=== PATIENT | male | born 1970 | race African-American/Black ===

== ENCOUNTER → 2021-06-08 | Outpatient (CLI) | payer BC, OTHER ==
[~2021-06-08] MED LIST: HYDR-34 PO; HYDR1TAB PO
--- NOTE | 2021-06-08 09:58 | Diagnostic Imaging Report ---
PROCEDURE: US Gallbladder. TECHNIQUE: Multiple real-time grayscale images were obtained over the right upper quadrant in various projections. INDICATION: Epigastric pain. COMPARISON: None available. FINDINGS: The liver is normal in size (16 cm in length) and echogenicity. There is no focal hepatic mass. The main portal vein is patent with antegrade flow. The gallbladder is distended without gallstones, wall thickening, or pericholecystic fluid. The common bile duct measures up to 0.3 cm in diameter. No intrahepatic biliary dilation. Pancreas is completely obscured by overlying bowel gas. The right kidney is normal in size. No hydronephrosis, shadowing calculi, or suspicious mass lesion. IMPRESSION: Normal right upper quadrant ultrasound. Dictated by: Dictated on workstation # [id number]
== END ==
LOC: RAD 08:00
PROVIDERS: ATTEND Surgery
DX: R10.13 Epigastric pain (principal)
CPT/HCPCS: 76705

== ENCOUNTER → 2021-06-15 | Outpatient (CLI) | payer BC, OTHER ==
[~2021-06-15] MED LIST changes: +CATHETER FLUSH 10 ML SYR IVP PRN
--- NOTE | 2021-06-15 12:10 | Diagnostic Imaging Report ---
RADIOPHARMACEUTICAL: 5.47 mCi Tc-99m Choletec IV. INDICATION: Epigastric pain. COMPARISON: 01/25/2009 and ultrasound dated 06/08/2021. TECHNIQUE: Anterior dynamic imaging for 45 minutes. An additional 60 minutes of imaging was performed after the patient ingested an 8 ounce can of Ensure Plus. FINDINGS: There is homogenous uptake throughout the liver. The gallbladder is visualized at 15 minutes and small bowel at 20 minutes. After ingesting an 8 ounce can of Ensure Plus, there is borderline low contraction of the gallbladder with mildly low calculated GBEF at 31%. IMPRESSION: 1. No evidence of acute cholecystitis or common duct obstruction. 2. The gallbladder ejection fraction is calculated to be 31%, which is minimally abnormally low. Therefore, this could relate to underlying biliary dyskinesia or chronic acalculous cholecystitis. Some medications can also result in decreased gallbladder ejection fraction. Dictated by: Dictated on workstation # [id number]
== END ==
LOC: CARD 09:33
PROVIDERS: ATTEND Surgery
DX: R10.13 Epigastric pain (principal)
CPT/HCPCS: 78227; A9537

== ENCOUNTER → 2021-06-21 | Outpatient (CLI) | payer OTHER ==
[~2021-06-21] MED LIST changes: +ACHD5005 PO; -CATHETER FLUSH 10 ML SYR IVP PRN; +DOCU-143 PO
== END | disposition home or self-care (01) ==
LOC: PREOP 13:59
PROVIDERS: ATTEND Surgery
DX: Z01.818 Encounter for other preprocedural examination (principal)

== ENCOUNTER 2021-06-22 07:50 | Day surgery (SDC) | payer OTHER ==
[2021-06-22] VITALS (11 sets, daily range): BP systolic 140–173; BP diastolic 86–107
[~2021-06-22] VITALS: Ht 190.5 cm; Wt 109.7 kg
[~2021-06-22 07:50] MED LIST changes: -ACHD5005 PO; -DOCU-143 PO
[2021-06-22] MEDS ORDERED: ceFAZolin 2 GM IV Premixed 50 ML IV ONE (08:15)
[2021-06-22] MEDS ORDERED: LIDOCAINE/EPI 2% 1:100,00 (XYLOCAINE) 20 ML VIAL ONE (08:26)
[2021-06-22] MEDS: LACTATED RINGERS 1,000 ML IV PRN ×2 (08:40→10:09)
--- NOTE | 2021-06-22 08:42 | Progress Note-Pre Operative ---
Pre-Operative Progress Note H&P Reviewed The H&P was reviewed, patient examined and no changes noted. Date Seen by Provider: June 22, 2021 Time Seen by Provider: 08:42 Date H&P Reviewed: June 22, 2021 Time H&P Reviewed: 08:42 Pre-Operative Diagnosis: biliary dyskinesia LEXI KNIGHT DO June 22, 2021 08:42
[2021-06-22] MEDS ORDERED: ROCURONIUM 50 MG/5 ML (ZEMURON) VIAL IV ONE (08:52)
[2021-06-22] MEDS ORDERED: LIDOCAINE PF 2% 5 ML (XYLOCAINE) VIAL ONE (08:52)
[2021-06-22] MEDS ORDERED: fentaNYL INJ 100 MCG/2 ML AMP ONE (08:52)
[2021-06-22] MEDS ORDERED: ONDANSETRON 4 MG/2 ML (SDV) Z0FRAN ONE (08:52)
[2021-06-22] MEDS ORDERED: MIDAZOLAM 2 MG/2 ML (VERSED) VIAL ONE (08:52)
[2021-06-22] MEDS ORDERED: proPOfol 200 MG/20 ML (DIPRIVAN) VIAL IV ONE (08:52)
[2021-06-22] MEDS ORDERED: PHENYLEPHRINE 100 MCG/ML 10 ML (ANESTHESIA) SYR ONE (09:52)
[2021-06-22] MEDS ORDERED: NEOSTIGMINE 3 MG/3 ML VIAL ONE (10:21)
[2021-06-22] MEDS ORDERED: GLYCOPYRROLATE 0.2 MG/ML (ROBINUL) 2 ML VIAL ONE (10:21)
[2021-06-22] MEDS ORDERED: SEVOFLURANE (ULTANE) 15 ML INHAL SOLN ONE (10:24)
--- NOTE | 2021-06-22 10:37 | Discharge Inst-Simple/Standard ---
Discharge Inst-Standard Discharge Medications New, Converted or Re-Newed RX: Transmitted to Pharmacy Patient Instructions/Follow Up Plan of Care/Instructions/FU: 2 weeks Sherrie Activity as Tolerated: No Discharge Diet: Regular Diet Other Inst to Patient Follow up Appt: Make appointment for 2 weeks. Instructions: No lifting greater than 10 pounds. No strenuous activity. May shower in 24 hours, no tub bath or soaking. Use incentive spirometer at home as directed. No Smoking Skin/Wound Care: You have special glue over incision, it will fall off on it's own. Symptoms to Report: Appetite Changes, Extremity Discoloration, Numbness/Tingling, Swelling Increased, Bleeding Excessive, Eyesight Changes, Pain Increased, Urine Color Change, Constipation(Persistent), Fever over 101 degree F, Pain/Pressure in chest, Urinating Difficulty, Cough Up/Vomit Blood, Heart Beat Irreg/Pounding, Pain/Pressure in jaw, Vaginal Bleeding Increase, Cramps in feet or legs, Lightheadedness, Pain/Pressure in shoulder, Diarrhea(Persistent), Memory Changes Suddenly, Questions/Concerns, Weight gain consecutive days, Dizziness/Fainting, Nausea/Vomiting, Shortness of Breath, Weight gain over 2 pounds. If eyes or skin turn yellow notify physician. If questions or concerns contact your physician Or seek help at emergency department. LEXI KNIGHT DO June 22, 2021 10:36
[2021-06-22] MEDS ORDERED: ACHD5005 PO ×2 (10:38→12:22)
[2021-06-22] MEDS ORDERED: DOCU-143 PO ×2 (10:38→12:22)
--- NOTE | 2021-06-22 10:41 | Progress Note-Post Operative ---
Post-Operative Progess Note Surgeon (s)/Casing Finisher And Stuffer (s) Surgeon LEXI KNIGHT DO Casing Finisher And Stuffer: Dr. Phelps to assist in retraction dissection and closure Pre-Operative Diagnosis biliary dyskinesia Post-Operative Diagnosis same Procedure & Operative Findings Date of Procedure 06/22/21 Procedure Performed/Findings PROCEDURE: Laparoscopic cholecystectomy with intraoperative cholangiogram. COMPLICATIONS: None. PROCEDURE: The patient was taken to the operating suite and was prepped and draped in sterile fashion. A surgical pause was performed. Just superior to the umbilicus, a 12 mm incision was made. Dissection was taken down to the fascia, which was then scored and grasped with a Cornelius and the abdomen was then entered. A 0 Vicryl suture was placed in a zsnsez-be-mtkal fashion and a Hays trocar was placed and secured. Pneumoperitoneum was achieved. A 5mm trochar place in the subxyphoid and 2 in the right upper quadrant. The gallbladder was then grasped and elevated. Lots of adhesions to the liver and gallbladder. These were taken down with cautery and blunt dissection. The cystic duct, and cystic artery were then dissected out. Clip was placed on the distal portion of the cystic duct which was then partially transected. An arrow catheter was inserted into the duct. The cholangiogram was then performed. No filing defects and contrast made its way into the duodenum. Catheter removed. Clips were placed on proximal portion of the cystic duct and then the duct was then transected. Clips were placed along the proximal and distal portion of the cystic artery which was then transected. Hook cautery was used to dissect the gallbladder from the gallbladder fossa achieving hemostasis. The gallbladder was placed in an Endobag and removed through the 12 mm trocar site. The abdomen was then reinspected. Copious amounts of irrigation were used to irrigate the abdomen and there were no signs of active bleeding. Hemostasis had been achieved. The 12 mm fascial defect was then closed with 0 Vicryl suture that had been placed in a rkjufk-qv-rmufo fashion. The abdomen was then desufflated, the trocars were removed. The abdomen was then washed and dried. The skin was then closed using 4-0 Monocryl in a subcuticular fashion. The abdomen was washed and dried and Skin Affix was place over incisions. Patient tolerated the procedure well without any complications and was taken to the recovery room in stable condition. Anesthesia Type general Estimated Blood Loss Estimated blood loss (mL): minimal Specimens/Packing Specimens Removed gallbladder LEXI KNIGHT DO June 22, 2021 10:41
[2021-06-22] MEDS ORDERED: MEPERIDINE (DEMEROL) INJ 50 MG/ML IVP ONE (10:45)
[2021-06-22] MEDS ORDERED: fentaNYL INJ 100 MCG/2 ML AMP IVP ONE (10:45)
[2021-06-22] MEDS ORDERED: HYDROmorphone 2 MG/ML VIAL (DILAUDID) IV ONE (10:45)
[2021-06-22] MEDS ORDERED: ONDANSETRON 4 MG/2 ML (SDV) Z0FRAN IVP PRN (10:45)
[2021-06-22] MEDS ORDERED: PROMETHAZINE INJ 25 MG/ML (PHENERGAN) AMP IVP ONE (10:45)
--- NOTE | 2021-06-22 11:01 | Anesthesia-General Post-Op ---
General Patient Condition Mental Status/LOC: Same as Preop Cardiovascular: Satisfactory Nausea/Vomiting: Absent Respiratory: Satisfactory Pain: Controlled Complications: Absent Post Op Complications Complications None Follow Up Care/Instructions Patient Instructions None needed. Anesthesia/Patient Condition Patient Condition Patient is doing well, no complaints, stable vital signs, no apparent adverse anesthesia problems. No complications reported per nursing. HUMPHREY HSIEH CRNA June 22, 2021 11:01
--- NOTE | 2021-06-22 11:04 | Diagnostic Imaging Report ---
INDICATION: Fluoroscopy for intraoperative cholangiogram. Fluoroscopy was performed during intraoperative cholangiogram in the OR. 9 seconds of fluoroscopic time utilized. 42 images were obtained demonstrating contrast being injected via the cystic duct remnant. Intrahepatic and extrahepatic bile ducts are normal caliber. No filling defects are seen. There is flow of contrast into the duodenum. IMPRESSION: Fluoroscopy for intraoperative cholangiogram. Dictated by: Dictated on workstation # [id number]
[2021-06-22] MEDS ORDERED: HYDROcodone/APAP 5 MG/325 MG (LORTAB) TAB PO ONE (12:15)
== END 2021-06-22 12:35 | disposition home or self-care (01) ==
LOC: SDC 07:50
PROVIDERS: ATTEND Surgery
DX: K82.8 Other specified diseases of gallbladder (principal); K81.1 Chronic cholecystitis; K64.0 First degree hemorrhoids; K31.9 Disease of stomach and duodenum, unspecified
CPT/HCPCS: 76000; 87081; 94664

== ENCOUNTER 2022-06-16 18:45 | Emergency (ER) | payer OTHER ==
[~2022-06-16] VITALS: Ht 190.5 cm; Wt 108.9 kg
[~2022-06-16 18:45] MED LIST changes: +ACHD5005 PO; +DOCU-143 PO
--- NOTE | 2022-06-16 18:51 | ED General ---
General Stated Complaint: POSSIBLE SEIZURE Source of Information: EMS History of Present Illness Date Seen by Provider: Jun 16, 2022 Time Seen by Provider: 18:50 Initial Comments Patient is a 52-year-old male who presents to the emergency department today by EMS chief complaint syncope. He was visiting his parents, had several drinks this evening also smoked marijuana for the first time. He went into the bathroom to go urinate and started to feel lightheaded. He was leaning over the sink feeling a little nauseous and then went down. He did hit his head on the floor, he states he heard the "thud". Unsure really of loss of consciousness. He was found sitting in the bathroom against the wall. He was unable to get up on his own. Has never smoked marijuana before. Denies any recent illnesses. Does not take any daily medications. No chest pain, shortness of breath. He did have a headache initially but that is improved. He denies new numbness tingling weakness in his extremities. He does have a history of what looks like ulnar nerve repair on the left. He has chronic tingling/numbness in his left upper and lower extremity. On arrival in a cervical collar. Awake, alert oriented and in no acute distress. EMS did report initial blood pressure once he was in the ambulance in the upper 80s systolic. Currently 117 systolic. Timing/Duration: 1 Hour Severity: Moderate Associated Systoms: Other (No current symptoms) Allergies and Home Medications Allergies Coded Allergies: No Known Drug Allergies (Unverified , 06/22/21) Patient Home Medication List Home Medication List Reviewed: Yes Docusate Sodium (Colace) 100 Mg Capsule, 100 MG PO BID Prescribed by: LEXI KNIGHT on 06/22/21 1222 Hydrocodone/Acetaminophen (Hydrocodone-Acetamin 5-325 mg) 5 Mg-325 Mg Tablet, 1 EACH PO Q4H PRN for PAIN-MODERATE (5-7) Prescribed by: LEXI KNIGHT on 06/22/21 1222 Review of Systems Review of Systems Constitutional: see HPI, malaise, other (syncope) EENTM: no symptoms reported Respiratory: no symptoms reported Cardiovascular: no symptoms reported Gastrointestinal: no symptoms reported Genitourinary: no symptoms reported Musculoskeletal: neck pain (initially) Skin: other (rash dorsum of left wrist ) Psychiatric/Neurological: Paresthesia (LUE, LLE), Other (syncope) All Other Systems Reviewed Negative Unless Noted: Yes Past Teyqtqc-Hycsrl-Xwpkwb Hx Seasonal Allergies Seasonal Allergies: No Past Medical History Respiratory: No Currently Using CPAP: No Currently Using BIPAP: No Cardiac: No Neurological: No Reproductive Disorders: No Sexually Transmitted Disease: No Gastrointestinal: No Musculoskeletal: No Endocrine: No Blood Disorders: No Physical Exam Vital Signs Vital Signs - First Documented 06/16/22 18:47 Temp 36.4 Pulse 77 Resp 14 B/P (MAP) 119/70 (86) Pulse Ox 96 Capillary Refill : Height, Weight, BMI Height: '" Weight: lbs. oz. kg; 30.22 BMI Method: General Appearance: No Apparent Distress, WD/WN Eyes: Bilateral Eye Normal Inspection, Bilateral Eye PERRL, Bilateral Eye EOMI HEENT: TMs Normal, Moist Mucous Membranes Neck: Non Tender, Other (cervical collar in place) Respiratory: Lungs Clear, Normal Breath Sounds, No Accessory Muscle Use, No Respiratory Distress Cardiovascular: Regular Rate, Rhythm, Normal Peripheral Pulses Gastrointestinal: Non Tender, Soft Extremity: Normal Capillary Refill, Normal Inspection, Normal Range of Motion, Non Tender, No Calf Tenderness Neurologic/Psychiatric: Alert, Oriented x3, No Motor/Sensory Deficits (5/5 motor U/L ext bilat; subjective decreased sensation LUE and LLE), Normal Mood/Affect, web methods developer II-XII Norm as Tested Skin: Normal Color, Warm/Dry, Other (numular dermatitis dorsal left wrist (pt reports reaction to watch)) Progress/Results/Core Measures Suspected Sepsis SIRS Temperature: Pulse: Respiratory Rate: Blood Pressure / Mean: Laboratory Tests 06/16/22 18:53: Creatinine 1.24 Results/Orders Lab Results Laboratory Tests Test 06/16/22 18:53 Range/Units Sodium Level 140 135-145 MMOL/L Potassium Level 3.5 L 3.6-5.0 MMOL/L Chloride Level 108 H 98-107 MMOL/L Carbon Dioxide Level 17 L 21-32 MMOL/L Anion Gap 15 H 5-14 MMOL/L Blood Urea Nitrogen 10 7-18 MG/DL Creatinine 1.24 0.60-1.30 MG/DL Estimat Glomerular Filtration Rate 70 BUN/Creatinine Ratio 8 Glucose Level 106 H 70-105 MG/DL Calcium Level 8.7 8.5-10.1 MG/DL My Orders Orders - RIP NORRIS MD Ct Head/Cervical Spine Wo (06/16/22 18:57) Ekg Tracing (06/16/22 18:57) Basic Metabolic Panel (06/16/22 18:57) Vital Signs/I&O 06/16/22 18:47 Temp 36.4 Pulse 77 Resp 14 B/P (MAP) 119/70 (86) Pulse Ox 96 Capillary Refill : Progress Note : Time: 20:41 Progress Note Patient seen and evaluated by me. Evaluation today includes physical exam, basic metabolic panel, EKG, CT head and cervical spine without contrast. Pertinent physical exam findings include well-developed well-nourished - [place] male in no acute distress. He is examined while in a cervical collar but has no midline cervical spine tenderness. He does endorse subjective decrease sensation in the left upper and left lower extremity however this was pre-existing his fall and syncope this evening. Normal strength in all 4 extremities. No abdominal tenderness no chest wall tenderness. Lungs are clear, heart is regular. HEENT exam is unremarkable. No focal neurologic deficits other than the aformentioned sensory disturbance. Differential diagnosis includes vasovagal syncope, dehydration, arrhythmia. Labs and imaging reviewed by me. His EKG is normal sinus without any evidence of ST segment elevation or depression or ectopy. He does have some diffuse T wave inversion. His basic metabolic panel is in within normal limits. His CT head and cervical spine were read by radiology as no acute findings. Patient is monitored throughout his stay in the emergency department. His blood pressure now is in the upper 140s over 90s. He remains asymptomatic. I have counseled him on fluid replacement. He did have 500 cc per EMS. Likely should not combine alcohol and marijuana in the future. His blood pressure has trended up he mentions that he has been on blood pressure medications in the past and was followed by Dr. Edmonds. He has not seen him in a few years. I did recommend keeping a blood pressure log and calling on Saturday for a follow-up appointment next week. His parents are at the bedside they are comfortable with plan of care as is patient. He does complain about a little nummular eczema versus contact dermatitis on the left wrist. I recommended qerl-amk-naholjv steroid cream. Return precautions given in both verbal and written format. All questions are sought and answered. Patient is improved at discharge. ECG Initial ECG Impression Date: Jun 16, 2022 Initial ECG Impression Time: 19:09 Initial ECG Rate: 70 Initial ECG Rhythm: Normal Sinus Initial ECG Intervals MS interval 200 QRS 104 QTc 425 Comment Slightly prolonged MS interval at 200 ms, inverted T waves I, aVL, V4, V5, V6, nonspecific ST-T wave changes inferiorly, no ectopy Diagnostic Imaging Diagonstic Imaging: CT Comments [facility], [place] NAME: NEIL POSEY [facility] REC#: [id number] PT STATUS: REG ER : 1970 PHYSICIAN: RIP NORRIS MD ADMIT DATE: 06/16/22/ER Signed Date of Exam:06/16/22 CT HEAD/CERVICAL SPINE WO PROCEDURE: CT head and CT cervical spine without contrast. TECHNIQUE: Multiple contiguous axial images were obtained through the brain and cervical spine without the use of intravenous contrast. Sagittal and coronal reformations through the cervical spine were then performed. Auto Exposure Controls were utilized during the CT exam to meet ALARA standards for radiation dose reduction. INDICATION: Headache and neck pain after fall. COMPARISON: None Findings: No acute intracranial hemorrhage. The mallory-white matter differentiation is preserved. The ventricles and cortical sulci are normal. No intracranial mass or fluid collection. No midline shift or mass effect. The subarachnoid cisterns are normal. The sella is normal. The globes and orbits are normal. The soft tissues are normal. The calvarium is normal. The paranasal sinuses and mastoids are clear. There is straightening of the cervical lordosis. Mild anterolisthesis of C4 on C5. Mild retrolisthesis of C3 on C4. Mild multilevel facet arthritis. No acute fracture or dislocation of the cervical spine. No lytic or sclerotic bone lesions. No high-density fluid within the spinal canal. Mild multilevel spinal canal and neural foraminal narrowing due to uncovertebral and facet arthritis. Soft tissues demonstrate no significant findings. Included lung apices are normal. IMPRESSION: No acute intracranial hemorrhage. No large vascular territory de santiago-white loss. No intracranial mass, midline shift, or hydrocephalus. No acute fracture or dislocation of the cervical spine. Dictated by: Dictated on workstation # [id number] Dict: 06/16/221958 Trans: 06/16/222001 [facility] [place] [facility] [id number] Interpreted by: DEBBIE ANTHONY DO Electronically signed by: DEBBIE ANTHONY DO 06/16/222001 Departure Impression Primary Impression: Syncope Qualified Codes: R55 - Syncope and collapse Additional Impression: Elevated blood pressure reading Disposition: HOME, SELF-CARE Condition: Improved Departure-Patient Inst. Decision time for Depature: 20:40 Referrals: NO,LOCAL PHYSICIAN (PCP) Primary Care Physician DERRICK EDMONDS DO Patient Instructions: Fainting, Adult ED, High Blood Pressure in Adults Add. Discharge Instructions: You should keep a log of your blood pressure over the next week. Take it once a day at different times of the day, write it down and please follow-up with Dr. Edmonds. Drink plenty of fluids such as water, Gatorade, electrolyte replacement drinks to stay well-hydrated. Over the counter steroid cream (Cortisone) to the rash on the left wrist twice a day for 1 week. If you develop any new, concerning or emergent complaints, please return to the Emergency Department for re-evaluation. Copy Copies To 1: DERRICK EDMONDS KATHRYN M MD Jun 16, 2022 18:51
[2022-06-16 19:09] LABS: POTASSIUM 3.5 MMOL/L (3.6-5.0)
[2022-06-16 19:10] LABS: CALCIUM 8.7 MG/DL (8.5-10.1)
[2022-06-16 19:14] LABS: CREATININE SERUM 1.24 MG/DL (0.60-1.30)
--- NOTE | 2022-06-16 20:04 | Diagnostic Imaging Report ---
PROCEDURE: CT head and CT cervical spine without contrast. TECHNIQUE: Multiple contiguous axial images were obtained through the brain and cervical spine without the use of intravenous contrast. Sagittal and coronal reformations through the cervical spine were then performed. Auto Exposure Controls were utilized during the CT exam to meet ALARA standards for radiation dose reduction. INDICATION: Headache and neck pain after fall. COMPARISON: None Findings: No acute intracranial hemorrhage. The mallory-white matter differentiation is preserved. The ventricles and cortical sulci are normal. No intracranial mass or fluid collection. No midline shift or mass effect. The subarachnoid cisterns are normal. The sella is normal. The globes and orbits are normal. The soft tissues are normal. The calvarium is normal. The paranasal sinuses and mastoids are clear. There is straightening of the cervical lordosis. Mild anterolisthesis of C4 on C5. Mild retrolisthesis of C3 on C4. Mild multilevel facet arthritis. No acute fracture or dislocation of the cervical spine. No lytic or sclerotic bone lesions. No high-density fluid within the spinal canal. Mild multilevel spinal canal and neural foraminal narrowing due to uncovertebral and facet arthritis. Soft tissues demonstrate no significant findings. Included lung apices are normal. IMPRESSION: No acute intracranial hemorrhage. No large vascular territory de santiago-white loss. No intracranial mass, midline shift, or hydrocephalus. No acute fracture or dislocation of the cervical spine. Dictated by: Dictated on workstation # [id number]
[2022-06-16 20:58] VITALS: BP 150/96
== END 2022-06-16 21:02 | disposition home or self-care (01) ==
LOC: EDUNIT# 18:45 → ER 18:46
DX: R55 Syncope and collapse (principal); R03.0 Elevated blood-pressure reading, without diagnosis of hypertension; Z28.310 Unvaccinated for COVID-19
CPT/HCPCS: 36415; 70450; 72125; 80048; 93005